=== PATIENT | male | born 1990 | race Caucasian/White ===

== ENCOUNTER 2020-02-16 07:17 | Emergency (ER) | payer OTHER, SELFPAY ==
[2020-02-16 07:36] VITALS: BP 122/85; PULSE 127; RESP 16; TEMP 37.1; O2SAT 95; BMI 32.1
--- NOTE | 2020-02-16 07:52 | ED_ITS ---
HPI - Allergic Reaction General Chief complaint: Allergic Reaction Stated complaint: allergic reaction to food yesterday,breaking out Time Seen by Provider: 02/16/20 08:11 Source: patient Mode of arrival: Ambulatory Limitations: no limitations History of Present Illness HPI narrative: This is a 30-year-old male who comes to the emergency department with concern for allergic reaction. Patient states yesterday he was at a gas station he got a Gatorade and some gas station food. He went home he ate it and very shortly thereafter broke out in a rash. Patient states that it is quite itchy. States started sort of on his chest and has sent into his arms and a little bit of his neck. He denies any swelling of his lips, tongue, oropharynx or throat. No wheezing or stridor, no fevers. No nausea, no vomiting, no no other GI symptoms. Patient has not had similar symptoms in the past. He is not sure if he has any food allergies but has never experienced any. He denies any other medical issues. Denies any medication allergies. He has not had any new exposures to soaps, lotions, detergents or other environmental exposures that he is aware. He did start taking Benadryl last night he has had 3 tablets total most recent was about 5 or 6 hours ago. His heart rate was elevated when he arrived he states he did have a large energy drink just prior to arrival. Related Data Previous Rx's Medication Instructions Recorded famotidine [Pepcid] 20 mg PO BID #10 tab 02/16/20 prednisone 50 mg PO DAILY #3 tab 02/16/20 Review of Systems Review of Systems ROS Unobtainable: All systems reviewed & are unremarkable except as noted in HPI and below Patient History tobacco type: smokeless tobacco Substance Use Type: does not use Exam Narrative Exam Narrative: GEN: well nourished, well appearing male, alert and oriented x 3, patient appears to be in mild distress. HEENT: Atraumatic, pupils are equal round reactive to light, extraocular movements are intact, nares are clear, throat is clear without any exudates, erythema, tonsillar enlargement or uvular deviation HEART: Regular rate and rhythm without murmur, clicks, rubs. Heart rate is in the 90s on exam and on telemetry in the room LUNGS:Lungs clear to auscultation, no wheezes, rales, crackles, chest moves symmetrically, no tachypnea. ABD:bowel sounds normal, soft, non-tender, no guarding, rebound, rigidity, no masses noted, no hepatosplenomegaly MSCL: full range of motion, normal gait NEURO:CN 2-12 intact, sensation normal. SKIN: Erythematous patchy raised wheals consistent with hives on the upper extremities, torso and lower neck. Patient also has some mild swelling of his hands bilaterally. Patient does not appear to have any hives on his lower extremities. Initial Vital Signs Initial Vital Signs: Vital Signs Temperature 98.7 F 02/16/20 07:36 Pulse Rate 127 H 02/16/20 07:36 Respiratory Rate 16 02/16/20 07:36 Blood Pressure 122/85 02/16/20 07:36 Pulse Oximetry 95 02/16/20 07:36 Course Orders Ordered: Discontinued Medications Prednisone (Prednisone 20 Mg Tablet) 60 mg PO NOW ONE Stop: 02/16/20 08:23 Last Admin: 02/16/20 08:26 Dose: 60 mg Documented by: BTONER Vital Signs Vital signs: Vital Signs - 8 hr 02/16/20 07:36 Temperature 98.7 F Pulse Rate 127 H Respiratory Rate 16 Blood Pressure 122/85 Pulse Oximetry 95 MDM - Allergic Reaction MDM Narrative Medical decision making narrative: Patient comes to the part minute with complaint of rash, pruritus consistent with a allergic reaction. Patient had Benadryl his last dose was 5 or 6 hours ago. His heart rate was elevated but he had had a large energy drink just prior to arrival. While in the room his hea rt rate is in the 90s and he is in no additional distress. Discharge Plan Departure Patient Disposition: Home Clinical Impression: Allergic reaction Instructions: DI for Hives Activity Restrictions/Additional Instructions: [facility] next 3-5 days if your symptoms have not resolved completely. Take prednisone once daily until gone. I recommend that you take this medication with food or milk. Continue Benadryl 1-2 tablets every 6-8 hours as needed for symptoms Take Pepcid twice daily until gone. You may use a topical Benadryl or calamine type lotion to hives as directed. General Return Instructions : Return to the Emergency Department for any new or worsening symptoms. Return to the Emergency Department for fevers greater than 100.4, blistering, signs of infection such as increasing redness, swelling, pain or discharge, severe abdominal pain, chest pain, shortness of breath, swelling of the lips or mouth, difficulty swallowing, passing out, persistent vomiting, worrisome rash, or any other new or worsening symptoms. Prescriptions: New prednisone 50 mg tablet 50 mg PO DAILY Qty: 3 RF: 0 famotidine [Pepcid] 20 mg tablet 20 mg PO BID Qty: 10 RF: 0 Stand Alone Forms: Work Release Note
[2020-02-16 08:25] VITALS: PULSE 96; O2SAT 98
[2020-02-16] MEDS: predniSONE 20 MG TABLET 60 MG PO (08:26)
[2020-02-16 08:36] VITALS: BP 116/77
[2020-02-16 09:20] VITALS: BP 137/67; PULSE 97; O2SAT 100
--- NOTE | 2020-02-16 09:21 | PC.NURSE ---
appears live Hives, generalized.
== END 2020-02-16 09:21 | disposition home or self-care (01) ==
PROVIDERS: Emergency Provider Emergency Medicine
DX: T78.40XA Allergy, unspecified, initial encounter (principal); L50.9 Urticaria, unspecified
CPT/HCPCS: 99281; 99283